=== PATIENT | male | born 1950 | race Caucasian/White ===

== ENCOUNTER 2019-01-08 12:50 | Emergency (ER) | payer OTHER ==
[~2019-01-08] VITALS: Ht 180.3 cm; Wt 104.3 kg
[2019-01-08 13:07] VITALS: BP 158/68
[2019-01-08] MEDS ORDERED: NORVASC10 MG ORAL (13:09)
--- NOTE | 2019-01-08 13:15 | NUR ---
ED Nurse Note: Patient brought himself into ED, patient reports he has chronic back pain and his primary doctor does not prescribe him his oxycodone any more. patient denies any pain at this time "I don't have any pain now!" but patient reports he has chronic back pain. patient reports he wants some food. patient is alert awake, breathing unlabored and even, speaking in full sentences.
--- NOTE | 2019-01-08 13:38 | Emergency Room Report ---
History of Present Illness General Chief Complaint: Back Pain-No Injury Source: Patient Present Illness HPI 68 YO male presents to the ED requesting medication refill for oxycodone. Pt. reports having w/d symptoms after his doctor stopped rx'ing him oxycodone and placed him onto subutex. Pt. reports GI upset and generalized body aches that are 10/10 in severity. He states he is not currently having his pain but it is intermittent. He reports cramping abdominal sensations, denies diarrhea or constipation. Denies runny nose, yawning or goose bumps. PT. state his Dr. told him to come to the ED for refills of pain medications. Pt. denies hx of IVDU or street drug use. Pt. reports has been taking oxycodone for years for his chronic back pain. Denies hx of OD or w/d in the past. Denies dependence or abuse of alternate substances. Denies CP, Palpitations, LOC, AMS, dizziness, Changes in Vision, Sensation, paresthesias, or a sudden severe headache. Allergies: Coded Allergies: No Known Allergies (Unverified , 01/08/19) Patient History Past Medical History: see triage record Past Surgical History: none Pertinent Family History: none Reviewed Nursing Documentation: PMH: Agreed; PSxH: Agreed Nursing Documentation-PMH Past Medical History: No Stated History Hx Hypertension: Yes - chronic back pain Review of Systems All Other Systems: negative except mentioned in HPI Physical Exam Vital Signs Date Time Temp Pulse Resp B/P (MAP) Pulse Ox O2 Delivery O2 Flow Rate FiO2 01/08/19 13:07 98.6 81 19 158/68 (98) 98 Room Air Sp02 EP Interpretation: reviewed, normal General Appearance: no apparent distress, alert, GCS 15, non-toxic Head: normocephalic, atraumatic Eyes: bilateral eye normal inspection, bilateral eye PERRL ENT: hearing grossly normal, normal voice, other - no sneezing or rhinorrhea Neck: full range of motion Respiratory: chest non-tender, lungs clear, normal breath sounds, no wheezing, speaking full sentences Cardiovascular #1: regular rate, rhythm Gastrointestinal: normal bowel sounds, non tender, soft, non-distended, no guarding Musculoskeletal: back normal, gait/station normal, normal range of motion, non- tender Neurologic: alert, oriented x3, responsive, motor strength/tone normal, sensory intact, normal gait, speech normal, grossly normal Psychiatric: judgement/insight normal, no suicidal/homicidal ideation, anxious - Pt. does appear anxious and wants staff to speak with his doctor regarding rx. Skin: no rash, warm/dry, other - no evidence of infection or IVDU Medical Decision Making PA Attestation Dr. Reilly is my supervising Physician whom patient management has been discussed with. Diagnostic Impression: Primary Impression: Encounter for medical screening examination ER Course 68 YO male presents to the ED requesting medication refill for oxycodone. Pt. reports having w/d symptoms after his doctor stopped rx'ing him oxycodone and placed him onto subutex. Pt. reports GI upset and generalized body aches that are 10/10 in severity. He states he is not currently having his pain but it is intermittent. He reports cramping abdominal sensations, denies diarrhea or constipation. Denies runny nose, yawning or goose bumps. PT. state his DrRemi told him to come to the ED for refills of pain medications. Pt. denies hx of IVDU or street drug use. Pt. reports has been taking oxycodone for years for his chronic back pain. Denies hx of OD or w/d in the past. Denies dependence or abuse of alternate substances. Denies CP, Palpitations, LOC, AMS, dizziness, Changes in Vision, Sensation, paresthesias, or a sudden severe headache. Pt. reports being given referral to facility in [place] which is too far for him. Ddx considered but are not limited to: drug seeking, OD, Opiate w/d, dehydration , GE, or agitation just to name a few. --Contacted Dr. Mullins, who is pt. internal MD who recently rx'd subutex. He states pt. was given pain management information and instructed to go to an opiate detox facility. Vital signs: are WNL, pt. is afebrile H&PE are most consistent with non emergent need for opiate medication refill, mild W/D, non-compliance with pain management and detox facility follow up. -COWS Score: 10 ORDERS: none required at this time, the diagnosis is clinical ED INTERVENTIONS: None required at this time. - D/w pt. that he will be given additional substance dependence and detox resource information. D/w pt. that he should continue previously prescribed Subutex as directed. D/w pt. that he will be given Rx of Narcan due to risk for opiate OD. DISCHARGE: At this time pt. is stable for d/c to home. Will provide printed patient care instructions, and any necessary prescriptions. Care plan and follow up instructions have been discussed with the patient prior to discharge. Last Vital Signs Date Time Temp Pulse Resp B/P (MAP) Pulse Ox O2 Delivery O2 Flow Rate FiO2 01/08/19 13:07 98.6 81 19 158/68 98 Room Air Disposition: HOME, SELF-CARE Condition: Stable Scripts Naloxone HCl (Narcan) 4 Mg [place] 4 MG NS PRN, #1 SPRAY 0 Refills Prov: Rosie Mejía 01/08/19 Dicyclomine Hcl* (DICYCLOMINE HCL*) 10 Mg Capsule 10 MG ORAL TID for GI upset, #10 CAP Prov: Rosie Mejía 01/08/19 Hydroxyzine HCl (Hydroxyzine HCl) 25 Mg Tablet 25-50 MG ORAL QHS for insomnia, #10 TAB Prov: Rosie Mejía 01/08/19 Referrals: [facility] Patient Instructions: Medical Screening Exam Additional Instructions: Take any previously prescribed medications as directed. Do not drink alcohol, drive, or operate heavy machinery while taking Hydroxyzine as this may cause drowsiness. -Please review list of Substance Detox facilities. -Narcan is provided in case of accidental over dose. Follow up with a Primary Care Provider in 3-5 days, even if your symptoms have resolved. --Please review list of primary care clinics, if you do not already have a primary care provider Return sooner to ED if new symptoms occur, or current symptoms become worse. - Please note that this Emergency Department Report was dictated using Seesmictechnical inspector technology software, occasionally this can lead to erroneous entry secondary to interpretation by the dictation equipment. Rosie Mejía Jan 08, 2019 13:38
--- NOTE | 2019-01-08 13:42 | NUR ---
ED Nurse Note: patient is in bed, trying to make a phone call. KYARA Velez said to wait until medication to give food.
--- NOTE | 2019-01-08 13:54 | NUR ---
[facility] Dr. Paris Hurtado
[2019-01-08] MEDS ORDERED: DICYCLOMINE HCL10 MG ORAL (15:05)
[2019-01-08] MEDS ORDERED: NARCAN4 MG NS (15:05)
[2019-01-08] MEDS ORDERED: ATARAX25 MG ORAL (15:05)
[2019-01-08 15:17] VITALS: BP 158/68
--- NOTE | 2019-01-08 15:18 | NUR ---
ER DISCHARGE NOTE: Patient is cleared to be discharged per EB COULTER, pt is aox4, on room air, with stable vital signs. pt was given dc and prescription instructions, pt was able to verbalize understanding, pt id band removed without complications. pt is able to ambulate with steady gait with his cane. pt took all belongings.
--- NOTE | 2019-01-08 15:19 | NUR ---
ED Nurse Note: patient walked out with his walker without assistance, patient reports he will call for taxi to go back home.
== END 2019-01-08 15:18 | disposition home or self-care (01) ==
LOC: EMR 13:35
DX: R52 Pain, unspecified (principal); R10.9 Unspecified abdominal pain; G89.29 Other chronic pain; M54.9 Dorsalgia, unspecified; Z79.891 Long term (current) use of opiate analgesic
CPT/HCPCS: 99282